=== PATIENT | female | born 1975 | race Two or more races ===

== ENCOUNTER 2020-12-02 20:54 | Emergency (ER) | payer MEDICAID ==
[~2020-12-02] VITALS: Ht 167.6 cm; Wt 55.0 kg
[2020-12-02 21:23] VITALS: BP 138/76
[2020-12-03] MEDS ORDERED: ZIPR80CA2 MT (10:23)
[2020-12-03] MEDS ORDERED: LITH300C3 MT (10:23)
== END 2020-12-03 00:34 | disposition home or self-care (01) ==
LOC: ER 20:54
DX: Z00.00 Encounter for general adult medical examination without abnormal findings (principal); F41.9 Anxiety disorder, unspecified; F31.9 Bipolar disorder, unspecified; J45.909 Unspecified asthma, uncomplicated; E11.9 Type 2 diabetes mellitus without complications; F20.9 Schizophrenia, unspecified; Z90.49 Acquired absence of other specified parts of digestive tract
CPT/HCPCS: 99281

== ENCOUNTER 2020-12-03 09:28 | Emergency (ER) | payer MEDICAID ==
[~2020-12-03] VITALS: Ht 167.6 cm; Wt 55.0 kg
[2020-12-03 09:42] VITALS: BP 120/73
[2020-12-03] MEDS ORDERED: ZIPR80CA2 MT (10:23)
[2020-12-03] MEDS ORDERED: LITH300C3 MT (10:23)
[2020-12-03] MEDS ORDERED: ZIPRASIDONE HCL 80MG CAPSULE PO ONE (10:30)
[2020-12-03] MEDS ORDERED: LITHIUM CARBONATE 150 MG CAPSULE PO SCH (10:30)
[2020-12-03] MEDS ORDERED: ZIPRASIDONE HCL 40MG CAPSULE PO NR (10:45)
== END 2020-12-03 11:05 | disposition home or self-care (01) ==
LOC: ER 09:28
DX: L29.9 Pruritus, unspecified (principal); F15.10 Other stimulant abuse, uncomplicated; E11.9 Type 2 diabetes mellitus without complications; Z86.59 Personal history of other mental and behavioral disorders
CPT/HCPCS: 99283